=== PATIENT | female | born 1970 | race Caucasian/White ===

== ENCOUNTER 2022-09-26 07:08 | Emergency (ER) | payer MEDICARE, MEDICAID ==
[~2022-09-26] VITALS: Ht 152.4 cm; Wt 60.0 kg
[2022-09-26] MEDS ORDERED: HYDROcodone/acetaminophen 5mg/325mg tablet PO ONE (09:30)
[2022-09-26] MEDS ORDERED: ondansetron 4mg rapidly disintigrating tab PO ONE (09:30)
[2022-09-26 09:37] VITALS: BP 144/76
== END 2022-09-26 10:47 | disposition home or self-care (01) ==
LOC: ER 07:10
DX: S52.592A Other fractures of lower end of left radius, initial encounter for closed fracture (principal); F79 Unspecified intellectual disabilities; W18.39XA Other fall on same level, initial encounter; Y93.89 Activity, other specified; Y92.89 Other specified places as the place of occurrence of the external cause; Y99.8 Other external cause status
CPT/HCPCS: 29125; 73110; 99284; A4565; A6446; A6449

== ENCOUNTER 2022-09-29 17:58 | Emergency (ER) | payer MEDICARE, MEDICAID ==
[~2022-09-29] VITALS: Ht 152.4 cm; Wt 61.2 kg
[2022-09-29 18:27] VITALS: BP 155/53
--- NOTE | 2022-09-29 20:06 | NUR ---
NEW SPLINT DONE BY WILL EMT.
== END 2022-09-29 20:07 | disposition home or self-care (01) ==
LOC: ER 17:59
DX: S52.92XA Unspecified fracture of left forearm, initial encounter for closed fracture (principal); X58.XXXA Exposure to other specified factors, initial encounter; Y93.89 Activity, other specified; Y92.89 Other specified places as the place of occurrence of the external cause; Y99.8 Other external cause status
CPT/HCPCS: 29125; 99283; A6449